=== PATIENT | female | born 1960 ===

== ENCOUNTER 2018-04-28 07:48 | Outpatient (CLI) | payer OTHER | END 2018-04-28 08:03 | disposition home or self-care (01) | LOC: LAB 07:48 | DX: M05.50 Rheumatoid polyneuropathy with rheumatoid arthritis of unspecified site (principal); I10 Essential (primary) hypertension; N88.8 Other specified noninflammatory disorders of cervix uteri; E03.8 Other specified hypothyroidism; Z01.812 Encounter for preprocedural laboratory examination; Z01.818 Encounter for other preprocedural examination ==